=== PATIENT | female | born 1995 ===

== ENCOUNTER 2021-04-04 13:50 | Outpatient (CLI) | payer OTHER ==
[~2021-04-04] VITALS: Ht 162.6 cm; Wt 58.6 kg
[2021-04-04 13:57] VITALS: BP 114/74
== END 2021-04-04 14:42 | disposition home or self-care (01) ==
LOC: LDOP 13:50
PROVIDERS: ATTEND Obstetrics & Gynecology
DX: O26.893 Other specified pregnancy related conditions, third trimester (principal); R10.9 Unspecified abdominal pain; Z3A.36 36 weeks gestation of pregnancy
CPT/HCPCS: 59025

== ENCOUNTER 2021-04-25 06:55 | Inpatient (IN) | payer OTHER ==
[~2021-04-25] VITALS: Ht 162.6 cm; Wt 59.0 kg
[2021-04-25] MEDS ORDERED: NEWBORN KIT ONE (21:15)
[2021-04-25] MEDS ORDERED: OXYTOCIN 30U/ 0.9% NaCL 500ML 500 ML ONE (21:15)
[2021-04-25] MEDS: LACTATED RINGERS 1,000 ML IV SCH (21:20)
[2021-04-25 21:30] LABS: BASOPHILS % (AUTO) 0 % (0-1); EOSINOPHILS % (AUTO) 1 % (1-7); LYMPHOCYTES % (AUTO) 27 % (22-44); MEAN CORPUSCULAR HEMOGLOBIN 25.3 pg (27.0-34.8); MEAN CORPUSCULAR HGB CONC 32.1 g/dL (32.4-35.8); MONOCYTES % (AUTO) 10 % (2-9); NEUTROPHILS % (AUTO) 62 % (42-75); PLATELET COUNT 313 x10^3/uL (130-400); RED BLOOD COUNT 4.42 x10^6/uL (3.82-5.3); RED CELL DISTRIBUTION WIDTH 16.1 % (9.6-15.2)
[2021-04-25] MEDS ORDERED: CALCIUM CARBONATE 500 MG TAB.CHEW PO PRN (21:30)
[2021-04-25] MEDS ORDERED: PLEASE ENTER HEIGHT AND WEIGHT MC SCH (21:30)
[2021-04-25] MEDS ORDERED: FENTANYL PF 100 MCG/2ML IV PRN (21:30)
[2021-04-25] MEDS ORDERED: TERBUTALINE 1 MG/ML, 1ML SQ PRN (21:30)
[2021-04-25] MEDS ORDERED: MISOPROSTOL 25 MCG TABLET VG PRN (21:30)
[2021-04-25] MEDS ORDERED: SODIUM CITRATE/CITRIC ACID 30 ML UDC PO PRN (21:30)
[2021-04-25] MEDS ORDERED: TERBUTALINE 1 MG/ML, 1ML IVPush PRN (21:30)
[2021-04-25] MEDS ORDERED: ALUMINUM/MAG/SIMETHICONE 30 ML UDC PO PRN (21:30)
[2021-04-25] MEDS ORDERED: D5%-LACTATED RINGERS 1,000 ML IV SCH (21:30)
[2021-04-25] MEDS ORDERED: OXYTOCIN 30U/ 0.9% NaCL 500ML 500 ML IV ONE (21:30)
[2021-04-25] MEDS ORDERED: OXYTOCIN 30U/ 0.9% NaCL 500ML 500 ML IV PRN (21:30)
[2021-04-25] MEDS ORDERED: SODIUM CHLORIDE FLUSH 10ML SYR IVF PRN (21:30)
[2021-04-25] MEDS ORDERED: ONDANSETRON 2MG/ML, 2ML IVPush PRN (21:30)
[2021-04-25] MEDS ORDERED: FENTANYL PF 100 MCG/2ML IVPush PRN (21:30)
[2021-04-25] MEDS ORDERED: METOCLOPRAMIDE 5 MG/ML, 2ML IVPush PRN (21:30)
[2021-04-25 21:34] VITALS: BP 110/69
[2021-04-26] MEDS: LACTATED RINGERS 1,000 ML IV SCH (01:00)
[2021-04-26] MEDS ORDERED: FENTANYL/BUPIV./NS/PF 250 ML EPIDCONT ONE (01:42)
[2021-04-26] MEDS ORDERED: BUPIVACAINE 0.25% ONE (02:13)
[2021-04-26] MEDS ORDERED: DOCUSATE 100 MG CAPSULE PO PRN (12:00)
[2021-04-26] MEDS ORDERED: OXYTOCIN 30U/ 0.9% NaCL 500ML 500 ML IV SCH (12:00)
[2021-04-26] MEDS ORDERED: SIMETHICONE 80 MG CHEW TAB PO PRN (12:00)
[2021-04-26] MEDS ORDERED: IBUPROFEN 600 MG TABLET ONE (12:13)
[2021-04-26 14:14] VITALS: BP 103/66
[2021-04-26] MEDS ORDERED: IBUPROFEN 200 MG TABLET PO PRN (14:30)
[2021-04-26] MEDS ORDERED: IBUPROFEN 600 MG TABLET PO PRN (14:30)
[2021-04-26 17:43] VITALS: BP 110/65
[2021-04-26 19:15] VITALS: BP 117/74
[2021-04-27 08:00] VITALS: BP 105/70
[2021-04-27] MEDS ORDERED: PRENATAL VIT/IRON/FA 1 EACH TABLET PO SCH (09:00)
[2021-04-27] MEDS ORDERED: IBUP-1222 PO (09:53)
== END 2021-04-27 13:00 | disposition home or self-care (01) | DRG 807 ==
LOC: LDIP 21:00 → 2NW 04-26 13:44
PROVIDERS: ADMIT Obstetrics & Gynecology; ATTEND Obstetrics & Gynecology
PROC: 10E0XZZ Delivery of Products of Conception, External Approach (ICD-10-PCS; principal; 2021-04-26)
PROC: 3E0R3BZ Introduction of Anesthetic Agent into Spinal Canal, Percutaneous Approach (ICD-10-PCS; 2021-04-26)
PROC: 00HU33Z Insertion of Infusion Device into Spinal Canal, Percutaneous Approach (ICD-10-PCS; 2021-04-26)
PROC: 10907ZC Drainage of Amniotic Fluid, Therapeutic from Products of Conception, Via Natural or Artificial Opening (ICD-10-PCS; 2021-04-26)
DX: O80 Encounter for full-term uncomplicated delivery (principal); Z37.0 Single live birth; Z3A.39 39 weeks gestation of pregnancy; Z88.1 Allergy status to other antibiotic agents; Z91.018 Allergy to other foods; Z20.822 Contact with and (suspected) exposure to COVID-19
CPT/HCPCS: 36415; J7121; 85025; 86592; 86850; 86900; 87635; G0378; J2405; J3010; J2590; J7120